=== PATIENT | female | born 1955 | race African-American/Black ===

== ENCOUNTER 2021-07-14 14:25 | Emergency (ER) | payer OTHER ==
[~2021-07-14] VITALS: Ht 172.7 cm; Wt 68.0 kg
[2021-07-14 16:43] LABS: BASOPHILS % 0.4 % (0.0-2.0); EOSINOPHILS % 1.4 % (0.0-5.0); HEMOGLOBIN. 12.4 g/dL (12.0-16.0); LYMPHOCYTES % 13.2 % (20.0-50.0); MEAN CORPUSCULAR HEMOGLOBIN 30.8 pg (28.0-32.0); MEAN CORPUSCULAR VOLUME 92.1 fL (81.0-99.0); MEAN PLATELET VOLUME 7.5 fl (7.4-10.4); MONOCYTES % 4.9 % (2.0-8.0); NEUTROPHILS % 80.1 % (40.0-76.0); PLATELET 232 x1000/uL (130-400); RED BLOOD CELL COUNT 4.02 mill/uL (4.2-5.4); RED CELL DISTRIBUTION WIDTH 13.8 % (11.6-14.6)
[2021-07-14 16:53] LABS: CHLORIDE 107 mEq/L (98-107)
[2021-07-14] MEDS ORDERED: IOHEXOL-350 100 ML BOTTLE ONE (22:54)
[2021-07-15] MEDS ORDERED: ACETAMINOPHEN 325MG TABLET PO ONE (04:15)
[2021-07-15] MEDS ORDERED: AMOX-494 MT (05:47)
[2021-07-15 05:59] VITALS: BP 152/85
[2021-07-15] MEDS ORDERED: IOHEXOL-350 100 ML BOTTLE ONE (06:54)
== END 2021-07-15 06:10 | disposition home or self-care (01) ==
LOC: ER 14:25
DX: R07.9 Chest pain, unspecified (principal); T50.B95A Adverse effect of other viral vaccines, initial encounter; Y92.9 Unspecified place or not applicable; I10 Essential (primary) hypertension; Z20.822 Contact with and (suspected) exposure to COVID-19
CPT/HCPCS: 36415; 71045; 71275; 80053; 83690; 83880; 84484; 85025; 85379; 87426; 93005; 99285; Q9967